=== PATIENT | female | born 1965 | race Caucasian/White ===

== ENCOUNTER 2018-09-30 12:03 | Inpatient (IN) | payer MEDICAID ==
[~2018-09-30] VITALS: Ht 154.9 cm; Wt 88.0 kg
[2018-09-30] MEDS ORDERED: ZOLPIDEM TARTRATE 10 MG TABLET PO PRN (16:00)
[2018-09-30 16:02] VITALS: BP 131/95
[2018-09-30 16:44] VITALS: BP 132/86
[2018-10-01 08:19] VITALS: BP 144/70
[2018-10-01 08:25] LABS: BASOPHILS % (AUTO) 0.9 % (0.0-2.0); EOSINOPHILS % (AUTO) 2.4 % (1.0-6.0); HEMATOCRIT 40.3 % (36-46); LYMPHOCYTES # (AUTO) 2.5 K/uL (1.0-4.8); LYMPHOCYTES % (AUTO) 43.4 % (22.0-44.0); MEAN CORPUSCULAR HEMOGLOBIN 30.8 pg (26.0-34.0); MEAN CORPUSCULAR HGB CONC 34.8 G/dL (31.0-37.0); MEAN CORPUSCULAR VOLUME 88 fL (80-100); MONOCYTES # (AUTO) 0.5 K/uL (0.1-1.0); MONOCYTES % (AUTO) 9.4 % (2.0-9.0); NEUTROPHILS # (AUTO) 2.5 K/uL (1.8-7.7); NEUTROPHILS % (AUTO) 43.9 % (40.0-70.0); PLATELET COUNT (AUTO) 217 K/uL (150-450); RED BLOOD CELL COUNT(AUTO) 4.57 MIL/uL (4.00-5.20); RED CELL DISTRIBUTION WIDTH 13.6 % (11.5-14.5)
[2018-10-01 08:48] LABS: ALANINE AMINOTRANSFERASE 156 U/L (12-78); ALBUMIN 3.1 g/dL (3.4-5.0); ALKALINE PHOSPHATASE 94 U/L (46-116); ANION GAP 4 mmol/L (8-16); ASPARTATE AMINOTRANSFERASE 108 U/L (15-37); BILIRUBIN,TOTAL 0.2 mg/dL (0.1-1.0); CALCIUM, TOTAL 9.3 mg/dL (8.8-10.5); CARBON DIOXIDE 29 mmol/L (22-29); CHLORIDE 106 mmol/L (98-107); CHOLESTEROL 146 mg/dL (131-200); CREATININE 0.96 mg/dL (0.60-1.30); FREE T4 (FREE THYROXINE) 0.88 ng/dL (0.76-1.46); GLOMERULAR FILTR. RATE CALC > 60 mL/min (>60); GLUCOSE,RANDOM 86 mg/dL (70-110); HDL CHOLESTEROL 48 mg/dL (40-60); LDL CHOL (CALC.) 80 mg/dL (0-130); SODIUM SERUM 139 mmol/L (136-145); THYROID STIMULATING HORMONE 2.04 uIU/mL (0.36-3.74); TOTAL PROTEIN, SERUM 7.9 g/dL (6.4-8.2); TRIGLYCERIDES 88 mg/dL (15-150); UREA NITROGEN, BLOOD 19 mg/dL (7-18)
[2018-10-01 08:51] LABS: HEMOGLOBIN A1C 5.5 % (4.5-6.2)
[2018-10-01] MEDS: HALOPERIDOL 5 MG TABLET PO PRN ×2 (08:55→16:56)
[2018-10-01] MEDS: LORazepam 2 MG TABLET PO PRN ×2 (08:55→16:56)
[2018-10-01] MEDS: ARIPiprazole 10 MG TABLET PO SCH (12:43)
[2018-10-01] MEDS ORDERED: DOCUSATE SODIUM 100 MG CAPSULE PO PRN (14:30)
[2018-10-01] MEDS ORDERED: LOPERAMIDE HCL 2 MG CAPSULE PO PRN (14:30)
[2018-10-01] MEDS ORDERED: GuaiFENesin/D-METHORPHAN [SUGAR-FREE] 200-20MG/10 ML SYRUP UDCUP PO PRN (14:30)
[2018-10-01] MEDS ORDERED: PETROLATUM,WHITE 71 GM JELLY TP PRN (14:30)
[2018-10-01] MEDS ORDERED: ALBUTEROL SULFATE HFA 90 MCG/PUFF 8 GM INHALER IH PRN (14:30)
[2018-10-01] MEDS ORDERED: ONDANSETRON HCL 4 MG TABLET PO PRN (14:30)
[2018-10-01] MEDS ORDERED: MAGNESIUM HYDROXIDE SUSPENSION 30 ML UDCUP PO PRN (14:30)
[2018-10-01] MEDS ORDERED: CloNIDine HCL 0.1 MG TABLET PO PRN (14:30)
[2018-10-01] MEDS ORDERED: NICOTINE 14 MG/24 HOUR PATCH TD PRN (14:30)
[2018-10-01 16:35] VITALS: BP 100/57
[2018-10-02 06:39] VITALS: BP 142/92
[2018-10-02 08:31] VITALS: BP 139/67
[2018-10-02] MEDS: ARIPiprazole 10 MG TABLET PO SCH (09:36)
[2018-10-02] MEDS: LORazepam 2 MG TABLET PO PRN (09:36)
[2018-10-02 16:12] VITALS: BP 128/78
[2018-10-03 00:29] VITALS: BP 147/85
[2018-10-03 08:23] VITALS: BP 127/86
[2018-10-03] MEDS: LORazepam 2 MG TABLET PO PRN (08:45)
[2018-10-03] MEDS: ARIPiprazole 15 MG TABLET PO SCH (08:45)
[2018-10-03 16:36] VITALS: BP 110/68
[2018-10-04 03:53] VITALS: BP 124/82
[2018-10-04] MEDS: ACETAMINOPHEN 325 MG TABLET PO PRN (04:42)
[2018-10-04] MEDS: ARIPiprazole 15 MG TABLET PO SCH (08:27)
[2018-10-04 08:36] VITALS: BP 147/91
[2018-10-04 16:10] VITALS: BP 117/77
[2018-10-04] MEDS: IBUPROFEN 400 MG TABLET PO PRN (17:01)
[2018-10-05 01:05] VITALS: BP 122/80
[2018-10-05] MEDS: ARIPiprazole 15 MG TABLET PO SCH (08:23)
[2018-10-05 08:25] VITALS: BP 153/108
[2018-10-05 09:37] VITALS: BP 128/89
[2018-10-05 16:35] VITALS: BP 139/85
[2018-10-05] MEDS: MAG HYDROX/AL HYDROX/SIMETH ES 30 ML SUSPENSION UDCUP PO PRN ×2 (17:10→22:02)
[2018-10-06] MEDS: MAG HYDROX/AL HYDROX/SIMETH ES 30 ML SUSPENSION UDCUP PO PRN (05:48)
[2018-10-06 06:46] VITALS: BP 124/71
[2018-10-06] MEDS: ARIPiprazole 10 MG TABLET PO SCH (08:00)
[2018-10-06 08:25] VITALS: BP 116/86
[2018-10-06 16:31] VITALS: BP 126/67
[2018-10-06] MEDS: LORazepam 2 MG TABLET PO PRN (17:54)
[2018-10-06] MEDS: HALOPERIDOL 5 MG TABLET PO PRN (17:54)
[2018-10-07 02:15] VITALS: BP 118/72
[2018-10-07 08:21] VITALS: BP 134/76
[2018-10-07] MEDS: ARIPiprazole 10 MG TABLET PO SCH (08:34)
[2018-10-07 16:47] VITALS: BP 135/78
[2018-10-08 06:39] VITALS: BP 129/73
[2018-10-08 08:14] VITALS: BP 165/75
[2018-10-08] MEDS: ARIPiprazole 10 MG TABLET PO SCH (08:29)
[2018-10-08 12:48] VITALS: BP 137/89
[2018-10-08] MEDS: IBUPROFEN 400 MG TABLET PO PRN (12:48)
[2018-10-08 16:12] VITALS: BP 127/87
[2018-10-09 06:18] VITALS: BP 130/79
[2018-10-09 08:32] VITALS: BP 107/71
[2018-10-09] MEDS: ARIPiprazole 10 MG TABLET PO SCH (08:45)
[2018-10-09 16:24] VITALS: BP 104/68
[2018-10-10 06:23] VITALS: BP 126/62
[2018-10-10 08:10] VITALS: BP 146/89
[2018-10-10 08:37] VITALS: BP 146/89
[2018-10-10] MEDS: IBUPROFEN 400 MG TABLET PO PRN (08:37)
[2018-10-10] MEDS: ARIPiprazole 10 MG TABLET PO SCH (08:37)
[2018-10-10 13:51] VITALS: BP 125/85
[2018-10-10] MEDS: ACETAMINOPHEN 325 MG TABLET PO PRN (13:51)
[2018-10-10 16:51] VITALS: BP 139/90
[2018-10-11] MEDS ORDERED: ZOLPIDEM TARTRATE 10 MG TABLET PO PRN (00:15)
[2018-10-11 00:20] VITALS: BP 122/89
[2018-10-11] MEDS: ARIPiprazole 10 MG TABLET PO SCH (08:04)
[2018-10-11 08:37] VITALS: BP 140/78
[2018-10-11] MEDS: LORazepam 2 MG TABLET PO PRN (09:14)
[2018-10-11 16:10] VITALS: BP 132/94
[2018-10-12 06:42] VITALS: BP 128/86
[2018-10-12 08:19] VITALS: BP 120/99
[2018-10-12] MEDS: ARIPiprazole 10 MG TABLET PO SCH (09:41)
[2018-10-12] MEDS: LORazepam 2 MG TABLET PO PRN (14:52)
[2018-10-12 16:13] VITALS: BP 127/83
[2018-10-13 04:15] VITALS: BP 136/92
[2018-10-13 08:03] VITALS: BP 127/76
[2018-10-13] MEDS: ARIPiprazole 10 MG TABLET PO SCH (09:05)
[2018-10-13] MEDS ORDERED: ARIP10TA8 PO (10:53)
== END 2018-10-13 12:00 | disposition home or self-care (01) | DRG 750 ==
LOC: B3A 16:01
PROVIDERS: ADMIT Psychiatry & Neurology Psychiatry; ATTEND Psychiatry & Neurology Psychiatry
DX: F25.0 Schizoaffective disorder, bipolar type (principal); R45.851 Suicidal ideations; Z59.0 Homelessness; B18.2 Chronic viral hepatitis C; F10.10 Alcohol abuse, uncomplicated; F41.9 Anxiety disorder, unspecified; K21.9 Gastro-esophageal reflux disease without esophagitis
CPT/HCPCS: 80074; 83036; 84439; 84443; 87081

== ENCOUNTER 2018-10-06 11:18 | Emergency (ER) | payer MEDICAID ==
[~2018-10-06] VITALS: Ht 160 cm; Wt 87.0 kg
[2018-10-06] MEDS ORDERED: PB/HYOSCY/ATR/SCOP/LIDO/MAALOX 55 ML BOTTLE PO ONE (12:00)
[2018-10-06 12:34] LABS: APPEARANCE,URINE CLEAR (CLEAR); BILIRUBIN,URINE NEGATIVE (NEGATIVE); GLUCOSE, URINE (UA) NEGATIVE (NEGATIVE); KETONES,URINE NEGATIVE (NEGATIVE); LEUKOCYTE ESTERASE ,URINE NEGATIVE (NEGATIVE); NITRATE,URINE NEGATIVE (NEGATIVE); OCCULT BLOOD,URINE NEGATIVE (NEGATIVE); PH,URINE 7.5 (5.0-8.0); PROTEIN,URINE NEGATIVE (NEGATIVE); UROBILINOGEN,URINE 0.2 mg/dL (<=1.0)
[2018-10-06 12:34] LABS: BASOPHILS % (AUTO) 0.4 % (0.0-2.0); EOSINOPHILS % (AUTO) 1.7 % (1.0-6.0); HEMATOCRIT 41.3 % (36-46); HEMOGLOBIN 14.2 g/dL (12.0-16.0); LYMPHOCYTES # (AUTO) 2.6 K/uL (1.0-4.8); LYMPHOCYTES % (AUTO) 34.5 % (22.0-44.0); MEAN CORPUSCULAR HEMOGLOBIN 29.8 pg (26.0-34.0); MEAN CORPUSCULAR HGB CONC 34.3 G/dL (31.0-37.0); MEAN CORPUSCULAR VOLUME 87 fL (80-100); MONOCYTES # (AUTO) 0.8 K/uL (0.1-1.0); MONOCYTES % (AUTO) 10.8 % (2.0-9.0); NEUTROPHILS # (AUTO) 3.9 K/uL (1.8-7.7); NEUTROPHILS % (AUTO) 52.6 % (40.0-70.0); PLATELET COUNT (AUTO) 236 K/uL (150-450); RED BLOOD CELL COUNT(AUTO) 4.75 MIL/uL (4.00-5.20); RED CELL DISTRIBUTION WIDTH 13.6 % (11.5-14.5)
[2018-10-06 12:41] LABS: ANION GAP 7 mmol/L (8-16); CALCIUM, TOTAL 9.3 mg/dL (8.8-10.5); CARBON DIOXIDE 28 mmol/L (22-29); CHLORIDE 103 mmol/L (98-107); CREATININE 0.84 mg/dL (0.60-1.30); GLOMERULAR FILTR. RATE CALC > 60 mL/min (>60); GLUCOSE,RANDOM 91 mg/dL (70-110); POTASSIUM 4.3 mmol/L (3.5-5.1); SODIUM SERUM 138 mmol/L (136-145); UREA NITROGEN, BLOOD 19 mg/dL (7-18)
[2018-10-06 12:46] LABS: ALANINE AMINOTRANSFERASE 171 U/L (12-78); ALBUMIN 3.1 g/dL (3.4-5.0); ALKALINE PHOSPHATASE 110 U/L (46-116); AMYLASE 63 U/L (25-115); ASPARTATE AMINOTRANSFERASE 94 U/L (15-37); BILIRUBIN,TOTAL 0.2 mg/dL (0.1-1.0); LIPASE 185 U/L (73-393); TOTAL PROTEIN, SERUM 8.1 g/dL (6.4-8.2)
[2018-10-06 12:48] LABS: BACTERIA,URINE None Seen /HPF (None Seen); RBC,URINE None Seen /HPF (0-2); SQUAMOUS EPITHELIAL CELL,UR Few /LPF (None Seen); WBC,URINE None Seen /HPF (0-5)
[2018-10-06 12:59] VITALS: BP 122/92
== END 2018-10-06 13:50 | disposition home or self-care (01) ==
LOC: EMS 11:18
DX: R10.11 Right upper quadrant pain (principal); R10.13 Epigastric pain; F15.10 Other stimulant abuse, uncomplicated; R74.0 Nonspecific elevation of levels of transaminase and lactic acid dehydrogenase [LDH]; K21.9 Gastro-esophageal reflux disease without esophagitis; F41.9 Anxiety disorder, unspecified; F17.210 Nicotine dependence, cigarettes, uncomplicated
CPT/HCPCS: 76705